=== PATIENT | male | born 1965 | race African-American/Black ===

== ENCOUNTER 2019-10-11 10:39 | Outpatient (CLI) | payer OTHER ==
--- NOTE | 2019-10-11 12:03 | Vascular Lab Report ---
DUPLEX DOPPLER LEFT LOWER EXTREMITY VEINS INDICATION: Pain in the left leg FINDINGS: There is no thrombus within the deep veins of the left lower extremity from the common femoral to the calf veins. There is normal compression and augmentation on spectral analysis. IMPRESSION: No sonographic evidence for DVT in the left lower extremity. Signer Name: Justin Ramirez MD Signed: 10/11/2019 11:59 AM Workstation Name: [id number]
== END 2019-10-11 10:40 | disposition home or self-care (01) ==
LOC: VAS 10:39
PROVIDERS: ATTEND Family Medicine Adult Medicine
DX: M79.662 Pain in left lower leg (principal)